=== PATIENT | male | born 1990 | race Caucasian/White ===

== ENCOUNTER 2022-07-26 15:28 | Outpatient (CLI) | payer BC, SELFPAY ==
--- NOTE | ~2022-07-26 | XR_ITS ---
XR lumbar spine 2-3V DATE: 07/26/2022 15:56 INDICATION: Injury in March. Left-sided pain radiating downward TECHNIQUE: AP, lateral, coned lateral lumbosacral views COMPARISON: None FINDINGS: There is slight thoracolumbar dextroscoliosis. Normal alignment of the lumbar spine. No fra cture or bone destruction or spondylolisthesis. Included lower thoracic and lumbar pedicles are intac t. Lumbar levels interspaces appear relatively preserved. The sacrum joints are normal. IMPRESSION: Slight dextroscoliosis; otherwise unremarkable examination Reviewed, dictated and finalized at location B. [facility]
== END 2022-07-26 15:29 | disposition home or self-care (01) ==
LOC: CHSIMG 15:33
PROVIDERS: PCP Family Medicine; Visit Provider Family Medicine
DX: M54.50 Low back pain, unspecified (principal)
CPT/HCPCS: 72100

== ENCOUNTER 2022-09-07 15:45 | Outpatient (RCR) | payer BC, SELFPAY ==
--- NOTE | 2022-09-07 16:59 | PTOPEVAL1 ---
Assessment and note entered by Efra Serrato Evaluation Information Assessment Status Evaluation Diagnosis low back pain Onset 03/29/22 Subjective Information Pt. reports that he was moving his boat by hand and developed some soreness in the low back. He reports that pain worsened after a month and a half. He reports that then in early June he was feeling better and went to the gym and did squats. He reports he was squatting 225# and felt pain increasing in his back. He reports that day after he developed intense pain. He went to the doctor and was given prednisone and pain decreased . He then again attempted some lifting of a washer and dryer and developed pain again. He reports that he gets relief with walking and standing. He reports pain is increased with repetitive motions. He reports that his goal is to decrease his low back pain. Reported Pain Level Pain Score 2: Self Report Assessment PT Clinical Summary Pt. is a 31 year old male who enters the clinic with low back pain. He presents with indication of discogenic low back pain on this date. He presents with impaired postural awareness, impaired flexibility and pain on this date. Continued treatment is indicated in order to improve these areas to allow the pt. improved comfort with all IADL performance. Plan of Care Interventions Electrical Stimulation,Hot Pack/Cold Pack,Manual Therapy,Mechanical Traction,Therapeutic Activities ,Therapeutic Exercise PT Services Indicated Yes Treatment Frequency and 2x/week x 8 visits Duration These treatments will address the objective and functional deficits as defined above. The patient will be advanced safely and appropriately in order for the patient to progress towards his/her prior level of function. Additional exercises will be introduced and as well as a comprehensive home exercise program upon discharge, if needed, ?to ensure carryover of functional gains achieved in the clinic. This treatment plan has been reviewed and agreement upon by the patient.
== END 2022-09-24 15:46 | disposition home or self-care (01) ==
LOC: CHSPT 15:45
PROVIDERS: PCP Family Medicine; Visit Provider Family Medicine
DX: M54.50 Low back pain, unspecified (principal)
CPT/HCPCS: 97014; 97110; 97161; G0283